=== PATIENT | male | born 1945 | race Caucasian/White ===

== ENCOUNTER 2021-08-27 12:26 | Inpatient (IN) | payer MEDICARE ==
[~2021-08-27] VITALS: Ht 177.8 cm; Wt 77.8 kg
[2021-08-27 12:46] LABS: BASOPHILS ABSOLUTE AUTO 0.07 K/mm3 (0.00-0.23); BASOPHILS PERCENT AUTO 1 % (0-2); EOSINOPHILS ABSOLUTE AUTO 0.14 K/mm3 (0.00-0.68); EOSINOPHILS PERCENT AUTO 1 % (0-6); Hematocrit 48.4 % (37.0-53.0); Hemoglobin 15.9 g/dL (13.5-17.5); IMMATURE GRAN ABSOLUTE AUTO 0.12 K/mm3 (0.00-0.10); IMMATURE GRAN PERCENT AUTO 1 % (0-1); LYMPHOCYTES ABSOLUTE AUTO 2.73 K/mm3 (0.84-5.20); LYMPHOCYTES PERCENT AUTO 26 % (21-46); MONOCYTES ABSOLUTE AUTO 1.13 K/mm3 (0.16-1.47); MONOCYTES PERCENT AUTO 11 % (4-13); Mean Corpuscular HGB 31.4 pg (26.0-34.0); Mean Corpuscular HGB Conc 32.9 g/dL (31.5-36.5); Mean Corpuscular Volume 96 fL (80-100); NEUTROPHILS ABSOLUTE AUTO 6.47 K/mm3 (1.96-9.15); NEUTROPHILS PERCENT AUTO 61 % (41-73); Platelet Count 195 K/mm3 (150-400); RDW Standard Deviation 44.9 fL (35.1-46.3); Red Blood Cell Count 5.06 M/mm3 (4.30-5.90); White Blood Cell Count 10.66 K/mm3 (4.00-11.30)
[2021-08-27 13:05] LABS: Albumin/Globulin Ratio 1.1 (0.8-1.8); Bilirubin, Total 1.8 mg/dL (0.1-1.0); Bun/Creatinine Ratio 29.5 (12.0-20.0); Calcium, Blood 9.7 mg/dL (8.5-10.1); Creatinine, Blood 0.88 mg/dL (0.60-1.20); Globulin, Blood 3.5 g/dL (2.2-4.0); Potassium, Blood 3.9 mmol/L (3.5-5.5); Total Protein, Blood 7.5 g/dL (6.4-8.2)
[2021-08-27 14:52] LABS: Influenza A Negative (NEGATIVE); Influenza B Negative (NEGATIVE)
[2021-08-27 15:21] LABS: SARS-Cov-2 (COVID-19) PCR, MMC NEGATIVE (NEGATIVE)
[2021-08-27 16:35] LABS: Magnesium, Blood 2.2 mg/dL (1.6-2.4)
[2021-08-27 16:37] LABS: Thyroid Stimulating Hormone 0.984 uIU/mL (0.360-4.800)
[2021-08-27 16:41] LABS: Base Excess Venous 4.6 mmol/L; Bicarbonate Venous 25.8 mmol/L (24.0-30.0); PCO2 Venous 58.5 mmHg (38-42); pH Blood Venous 7.33 (7.34-7.37)
--- NOTE | 2021-08-27 17:12 | NUR ---
Pt arrived from the ED, very anxious, tachypneic, diaphoretic, denies pain, spo2 92% on 2 l/min oxygen; and unable to breathe well unless he is sitting upright, tripoding position. Unable to complete more than 3-4 words without taking a breath. Heart rate 117-125/ min, atrial fibrillation on 10 mg/hour of cardizem gtt. Lung sounds auduble wheezing and auscultated very wheezing. Given a breathing treatment. Noted BNP is elevated at 446 and no diuretics have yet been given. Call to Dr. Stein to report concerns. New orders received for IV lasix and for hydroxizine.
--- NOTE | 2021-08-27 17:29 | NUR ---
Pt is now wearing the bipap; RR is 20/minute and spo2 94%. Pt's work of breathing is much decreased and he is able to complete a phrase speaking without stopping for a breath. STates that his anxiety today has been very high. Heart rate 92/min. He is sitting back in the bed, no longer tripoding and sitting forward. HOB elevated at 55 degrees. Cardizem gtt lowered to 5 mg/hour. Given lasix and hydroxizine as ordered. He was able to swallow ice water while on a brief break from the bipap.
--- NOTE | 2021-08-27 18:27 | NUR ---
Cardizem turned off at this time. Heart rate unchanged, 95-109 bpm, still atrial fibrillation.
--- NOTE | 2021-08-27 18:27 | NUR ---
Taking a short break from bipap to eat some full liquid dinner.
[2021-08-28 04:27] LABS: Albumin, Blood 3.3 g/dL (3.4-5.0); Albumin/Globulin Ratio 1.2 (0.8-1.8); Bilirubin, Total 1.5 mg/dL (0.1-1.0); Bun/Creatinine Ratio 36.6 (12.0-20.0); Calcium, Blood 9.1 mg/dL (8.5-10.1); Creatinine, Blood 0.79 mg/dL (0.60-1.20); Globulin, Blood 2.8 g/dL (2.2-4.0); Potassium, Blood 4.4 mmol/L (3.5-5.5); Total Protein, Blood 6.1 g/dL (6.4-8.2)
--- NOTE | 2021-08-28 06:18 | NUR ---
SHIFT SUMMARY PT A&OX4, PLEASANT. SP02>92% ON 5L NC AND BIPAP AT START OF SHIFT. NC WHILE SLEEPING. DYSPNEA W/ EXERTION. VSS. PT USED URINAL AT BEDSIDE. SLEPT MOST OF NIGHT. CALL LIGHT IN REACH.
--- NOTE | 2021-08-28 07:30 | NUR ---
Pt is visibly dyspneic while sitting up in bed. Only able to speak 2-3 words before taking a breath. He is wearing the nasal cannula and receiving a nebulizer treatment. Respiratory rate is 29/minute, use of accessory muscles and belly breathing, and pt requesting to be sat upright more. Heart rate noted 124-139, atrial fibrillation by telemetry monitoring. Put on CPAP 10 cm pressure and pt reported immediately that his breathing was better. Spo2 92% with CPAP on 4 l/min bleed in. RT Lachelle Vieyra is here seeing the patient. Pt states that when he was starting to get a bed bath he became short of breath.
--- NOTE | 2021-08-28 09:36 | NUR ---
Pt is breathing much more easily at rest at this time than 2 hours ago. Spo2 95% on 2 l/min. Heart rhythm 115-132 bpm while talking and lying in bed. Cardizem gtt restarted at 5, increased to 10 cc/hour at this time. Pt states that the CPAP helped to resolve his dyspnea very well.
--- NOTE | 2021-08-28 10:17 | NUR ---
CARDIZEM gtt increased to 15 cc/hour. Heart rate was persistently 125 bpm. 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 Put on CPAP to give him relief from increased work of breathing. He is tolerating it well.
--- NOTE | 2021-08-28 11:11 | NUR ---
Spiritual care visit conducted. Patient is sitting up in bed and alert. Patient tells me about his life, career, hobbies and the loss of all the people in his world that he has loved. Pt explains his spiritual distress in that all caesar was lost for him in [place] as he served in the [employer]. He states, "There can be no God, after seeing what humans are capable of doing to one another." Pt says that he has PTSD, struggles with depression and is a recluse. He finds meaning in the quiet and beauty of nature and states that he never wants to in a hospital but wants to at home. He emphasizes the excellent care and kindness he has received at [facility] and expresses gratitude for it. I normalize patient's experience, encourage self-care, and provide therapeutic listening and companionship. Patient responds well and appears to be far more hopeful. I will continue to remain available to pateint and family.
--- NOTE | 2021-08-28 16:36 | NUR ---
SUMMARY The pt is alert, oriented, pleasant, cheerful and cooperative. Has not been able to get up out of bed due to dyspnea and tachypnea, and tachycardia. This morning the pt required the CPAP in order to resolve his dyspnea. At around 0930 he also was restarted on the cardizem gtt for afib rate 120s. He was started on p.o. metoprolol today, and this brought the heart rate down to the 70s and 80s range. Echocardiogram was done late this afternoon when heart rate was consistently less than 100 bpm. He is on 2 l/min of oxygen , alternating with CPAP also with 2 l/min bleed in whe he needs to recover after exertional efforts. He is dyspneic with minimal activity such as repositioning during a bed bath. His oral prednisone was changed to IV solumedrol. Cardiac diet tolerated fairly well, but has not had a great appetite. Doing better with liquids such as milk and juice. He has been using the urinal while in the bed
--- NOTE | 2021-08-28 16:56 | NUR ---
CARDIZEM GTT OFF NOW,.
--- NOTE | 2021-08-29 06:37 | NUR ---
NOC SHIFT SUMMARY PT SLEPT LITTLE TO NONE OVERNIGHT. NO COMPLAINTS OF PAIN. VSS PER PT TREND. AFIB ON TELEMETRY 90S-110S. UNABLE TO TITRATE OFF O2. 86% ON RA AND 92% ON 2L VIA NC. ADEQUATE UOP. WILL PASS ON TO DAY RN.
--- NOTE | 2021-08-29 12:53 | NUR ---
REASSESSMENT PT HAS BEEN UP IN THE CHAIR FOR MOST OF THE MORNING AND STATES HIS BREATHING HAS BEEN FEELING MUCH BETTER SITTING UP. HIS LUNG SOUNDS IN HIS R SIDE WERE EXTREMEMLY DIM AT THE START OF SHIFT, BUT AT THIS REASSESSMENT THERE IS MORE AIR MOVEMENT. PT WORE HIS BIPAP FOR ABOUT AN HOUR THIS MORNING, BUT THEN HAS JUST BEEN ON NASAL CANNULA. IT HAS BEEN TITRATED DOWN TO 2.5L.PT REPORTS LESS DYSPNEA WHILE EATING LUNCH, COMPARED TO BREAKFAST. REMAINS AFIB, RATE VARIES FROM 90 TO 110S, 120S WITH ACTIVITY. BP STABLE. PT WAS ABLE TO GET UP TO THE BR THIS MORNING AND TOELRATED WELL, ONLY HAD GAS. NO OTHER CONCERNS FROM PT. CONTINUING TO MONITOR.
--- NOTE | 2021-08-29 17:12 | NUR ---
SHIFT SUMMARY PT SPENT THE MORNING AND FIRST PART OF THE AFTERNOON IN THE CHAIR AND NOW HAS BEEN SLEEPING FOR THE PAST COUPLE HOURS. PT STATES HIS BREATHING HAS BEEN BETTER THIS AFTERNOON AND HE DOES HAVE MORE AIR MOVEMENT ON AUSCULTATION. REMAINS IN AFIB, RATE HAS BEEN IN THE 90S WHILE HE'S SLEEPING. EATING WELL, VOIDING INDEPENDENTLY. CONTINUING TO MONITOR.
--- NOTE | 2021-08-30 06:50 | NUR ---
NOC SHIFT SUMMARY PT SLEPT POORLY OVERNIGHT. NO COMPLAINTS OF PAIN. VSS PER PT TREND. AFIB ON TELEMETRY 80-110S. TITRATED PT DOWN TO RA OVERNIGHT. ADEQUATE UOP. ORIENTED X4. PT ANXIOUS AT TIMES AND STATES ON MULTIPLE OCCASIONS HE IS "READY TO LEAVE" AND MISSING HOME. THERAPEUTIC PRESENCE AND CONVERSATION OFFERED WITH SOME IMPROVEMENT IN MOOD. WILL CONTINUE TO MONITOR AND PASS ON TO DAY RN
--- NOTE | 2021-08-30 09:28 | NUR ---
CARE ASSUMPTION THIS RN ASSUMED CARE AT 0700 FROM ISAK MONTIEL. VSS. TELE AFIB 100-110S. SPO2 >90% ON RA. PATIENT IS ALERT AND OREINTED X4. NEURO IS INTACT. PERRLA. PATIENT REPORTS NO CHEST PAIN/PRESSURE. EDEMA NON-PITTING ANKLES AND LOWER LEGS BILATERALLY. STRONG RADIAL PULSES, FAINT PEDIS. PATIENT REPROTS NO SHORTNESS OF BREATH. CELAR/DIM LUNG SOUNDS. ABD IS SOFT NONTENDER AND ACTIVE. PATIENT VOIDS WITHOUT ISSUE. PATIENT HAS FUNGAL INFECTION IN GROIN AND PICTURES IN CHART AND CREAM APPLIED THIS AM. PATIENT STATING THIS AM THAT HE WANTS TO GO HOME, AND IS NOT USED TO BEING AROUND A LOT OF PEOPLE. STATED THAT [place]. 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 THIS RN PROVIDED THERAPEUTIC COMMUNICATION AND ACTIVE LISTENING. MD GIORDANO IN TO SEE PATIENT THIS AM. DISCUSSED PATIENT NEW MEDICATIONS AND IMPROTANCE OF FOLLOW UP WITH [facility]. DISCHARGE ORDERS PUT IN. THIS RN WILL GO OVER NEW MEDICATION AND DISCHARGE PACKET ONCE DISCHARGE IS COMPLETE. CALL LIGHT WITHIN REACH. PATIENT SITTING IN CHAIR.
[2021-08-30] MEDS ORDERED: ALEVAZOL56.7 G1 TOP (10:20)
[2021-08-30] MEDS ORDERED: METO50 PO (10:21)
[2021-08-30] MEDS ORDERED: PRED20 PO (10:25)
[2021-08-30] MEDS ORDERED: COMBIVENT RESPIM4 G1 INH (10:27)
[2021-08-30] MEDS ORDERED: XARELTO20 MG PO (10:28)
--- NOTE | 2021-08-30 11:42 | NUR ---
DISCHARGE THIS RN WENT OVER DISCHARGE EDUCATION. THIS RN WENT OVER MEDICATIONS PATIENT WILL BE TAKING, METOPROLOL, PREDNISONE, XERALTO, AND INHALER. THIS RN PRINTED OFF EDUCATIONAL PACKETS FOR EACH MEDICATION AND WENT OVER IT WITH THE PATIENT. THIS RN PRINTED OVER EDUCATIONAL PACKET FOR AFIB AND WENT OVER IT WITH THE PATIENT. MEDICATIONS FAXED TO [facility]. THIS RN WENT OVER FOLLOW UP WITH PRIMARY CARE AND GUN NUMBERER. THIS RN WHEELED THE PATIENT OUT. PATIENT WAS IN NO DISTRESS UPON LEAVING HOSPITAL. ALL BELONGINGS WITH PATIENT.
== END 2021-08-30 11:47 | disposition home or self-care (01) | DRG 308 ==
LOC: ER 12:26 → PCU 12:27
PROVIDERS: Emergency Medicine; Nurse Practitioner Acute Care; ADMIT Internal Medicine
PROC: 5A09357 Assistance with Respiratory Ventilation, Less than 24 Consecutive Hours, Continuous Positive Airway Pressure (ICD-10-PCS; principal; 2021-08-28)
DX: I48.91 Unspecified atrial fibrillation (principal); J96.22 Acute and chronic respiratory failure with hypercapnia; I27.20 Pulmonary hypertension, unspecified; Z20.822 Contact with and (suspected) exposure to COVID-19; J43.9 Emphysema, unspecified; F15.90 Other stimulant use, unspecified, uncomplicated; Z91.19 Patient's noncompliance with other medical treatment and regimen; Z90.49 Acquired absence of other specified parts of digestive tract
CPT/HCPCS: 36415; 71045; 80053; 82803; 83036; 83735; 83880; 84443; 84484; 85025; 87804; 93005; 93010; 93306; 94640; 94660; 94664; 94667; 94760; 94762; 96365; 96372; 96375; 96376; 98960; 99285-25; A9270; G0378; J1650; J1940; J2930; J7512; U0004